=== PATIENT | female | born 1980 | race Hispanic/Latino ===

== ENCOUNTER 2018-12-23 13:33 | Emergency (ER) | payer BC ==
[~2018-12-23] VITALS: Ht 152.4 cm; Wt 90.7 kg
[2018-12-23] MEDS ORDERED: SODIUM CHLORIDE 0.9% 1000ML 1,000 ML IV SCH (14:00)
[2018-12-23] MEDS ORDERED: MECLIZINE HCL12.5 MG PO (14:11)
--- NOTE | 2018-12-23 14:29 | NUR ---
Urine culture collected and sent to the lab via supply chain assistant.
--- NOTE | 2018-12-23 15:21 | Diagnostic Imaging Report ---
EXAMINATION: Head CT HISTORY: Syncope, dizziness COMPARISON: None. TECHNIQUE: Multidetector axial images were obtained with, without contrast from the foramen magnum to the vertex . The images were reconstructed using brain and bone algorithms. Thin section brain images were reformatted into coronal and sagittal planes. Image quality: Motion/streaking artifact limits the evaluation of the skull base and posterior cranial fossa. Dose modulation, iterative reconstruction, and/or weight based adjustment of the mA/kV was utilized to reduce the radiation dose to as low as reasonably achievable. FINDINGS: Parenchyma: 1. No abnormal densities. 2. No mass or hemorrhage. No CT evidence of acute territorial vascular insult. Extra-axial spaces:No abnormal density. No extra-axial fluid collections Brain volume: Normal for age. Ventricles: No hydrocephalus or displacement. Arteries: No density suggestive of thrombus. Dural sinuses: No abnormal density. Extra-axial spaces: No abnormal density. Foramen magnum: No mass, Chiari malformation, or basilar invagination. Sella: No obvious mass. Paranasal/mastoid sinuses: Imaged portions unremarkable. Skull/Scalp: No lytic or blastic lesions. No fractures. IMPRESSION: Normal head CT. Signed by: Dr. Elida Diggs M.D. on 12/23/2018 3:17 PM
[2018-12-23 15:25] VITALS: BP 129/79
[2018-12-23] MEDS ORDERED: BACTRIM DS TAB1 EACH PO (15:25)
== END 2018-12-23 15:30 | disposition home or self-care (01) ==
LOC: FSED 13:33
DX: R42 Dizziness and giddiness (principal); N30.90 Cystitis, unspecified without hematuria
CPT/HCPCS: 70450; 80053; 81003; 81025; 85025; 87086; 93005; 99284